=== PATIENT | female | born 1975 | race Caucasian/White ===

== ENCOUNTER → 2024-02-14 16:45 | Outpatient (REF) | payer OTHER, SELFPAY | LOC: RAD 16:45 | PROVIDERS: ATTENDING PHYSICIAN Student in an Organized Health Care Education/Training Program; FAMILY PHYSICIAN Family Medicine | DX: M34.9 Systemic sclerosis, unspecified (principal); M25.569 Pain in unspecified knee; M79.646 Pain in unspecified finger(s) | CPT/HCPCS: 71250; 73130; 73560; 73565 ==

== ENCOUNTER → 2024-02-24 07:25 | Outpatient (REF) | payer OTHER, SELFPAY | LOC: RSP 07:25 | PROVIDERS: ATTENDING PHYSICIAN Student in an Organized Health Care Education/Training Program; FAMILY PHYSICIAN Family Medicine | DX: M34.9 Systemic sclerosis, unspecified (principal) | CPT/HCPCS: 94727; 94729; 88738; 94010 ==

== ENCOUNTER → 2024-03-15 07:50 | Outpatient (REF) | payer OTHER, SELFPAY | LOC: RAD 07:50 | PROVIDERS: ATTENDING PHYSICIAN Student in an Organized Health Care Education/Training Program; FAMILY PHYSICIAN Family Medicine | DX: M79.646 Pain in unspecified finger(s) (principal) | CPT/HCPCS: 76882 ==

== ENCOUNTER → 2024-03-22 16:34 | Outpatient (REF) | payer OTHER, SELFPAY | LOC: RCS 16:34 | PROVIDERS: ATTENDING PHYSICIAN Student in an Organized Health Care Education/Training Program; FAMILY PHYSICIAN Family Medicine | DX: M34.9 Systemic sclerosis, unspecified (principal) | CPT/HCPCS: 93306 ==